=== PATIENT | female | born 2000 ===

== ENCOUNTER 2025-01-21 10:16 | Outpatient (CLI) | payer OTHER | END 2025-01-21 10:17 | disposition home or self-care (01) | LOC: PRENATAL 10:16 | PROVIDERS: ATTEND Obstetrics & Gynecology Maternal & Fetal Medicine | DX: O44.00 Complete placenta previa NOS or without hemorrhage, unspecified trimester (principal); Z3A.20 20 weeks gestation of pregnancy ==

== ENCOUNTER 2025-03-21 07:24 | Outpatient (CLI) | payer OTHER | END 2025-03-21 07:25 | disposition home or self-care (01) | LOC: PRENATAL 07:24 | PROVIDERS: ATTEND Obstetrics & Gynecology Maternal & Fetal Medicine | DX: O26.849 Uterine size-date discrepancy, unspecified trimester (principal); O28.1 Abnormal biochemical finding on antenatal screening of mother; Z3A.29 29 weeks gestation of pregnancy ==

== ENCOUNTER → 2025-05-02 08:28 | Outpatient (CLI) | payer OTHER | END | disposition home or self-care (01) | LOC: PRENATAL 08:28 | PROVIDERS: ATTEND Obstetrics & Gynecology Maternal & Fetal Medicine | DX: O26.843 Uterine size-date discrepancy, third trimester (principal); O36.8130 Decreased fetal movements, third trimester, not applicable or unspecified; O28.1 Abnormal biochemical finding on antenatal screening of mother ==